=== PATIENT | male | born 1975 | race Two or more races ===

== ENCOUNTER 2019-09-18 09:49 | Emergency (ER) | payer SELFPAY ==
[~2019-09-18] VITALS: Ht 165.1 cm; Wt 90.9 kg
--- NOTE | 2019-09-18 11:27 | PHYS DOC ---
Past Medical History Past Medical History: No Pertinent History Past Surgical History: No Surgical History Smoking Status: Never Smoker Alcohol Use: None General Adult EDM: Chief Complaint: LOWER EXT PAIN HPI: HPI: Patient is a 44 year old male who presents with Croatian-speaking only and states that 8 days ago he was outside doing yard work and he had a trailer and he was trying to load a machine up on the trailer and he hit the back of his right knee against a trailer. He states that it is been very painful and he has been taking Tylenol for it and there was a increase in bruising. He states he is walking but it is hard and it is a constant pain that he states he is unable to describe. He states that he went to a clinic in [facility] 2 days ago that he does not remember the name of and they did an ultrasound on the leg. He states that they called him today and told him to come into the emergency room to have it further examine for possible clot. Patient rates his pain an 8 out of 10. He states his only history is cholesterol which he takes a medication for. Review of Systems: Review of Systems: Musculoskeletal: Denies back pain. Right knee joint pain. [] Heart Score: Risk Factors: Risk Factors: DM, Current or recent (<one month) smoker, HTN, HLP, family history of CAD, obesity. Risk Scores: Score 0 - 3: 2.5% MACE over next 6 weeks - Discharge Home Score 4 - 6: 20.3% MACE over next 6 weeks - Admit for Clinical Observation Score 7 - 10: 72.7% MACE over next 6 weeks - Early Invasive Strategies Allergies: Allergies: Allergies Coded Allergies Type Severity Reaction Last Updated Verified No Known Drug Allergies 09/18/19 No Physical Exam: PE: Constitutional: Well developed, well nourished, no acute distress, non-toxic appearance. [] HENT: Normocephalic, atraumatic, bilateral external ears normal, oropharynx moist, no oral exudates, nose normal. [] Eyes: PERRLA, EOMI, conjunctiva normal, no discharge. [] Neck: Normal range of motion, no tenderness, supple, no stridor. [] Cardiovascular:Heart rate regular rhythm, no murmur [] Lungs & Thorax: Bilateral breath sounds clear to auscultation [] Abdomen: Bowel sounds normal, soft, no tenderness, no masses, no pulsatile masses. [] Skin: Warm, dry, no erythema, no rash. Hematoma to the back of the right knee that is healing with a yellowing of the skin down the medial portion of the leg. [] Back: No tenderness, no CVA tenderness. [] Extremities: Back of right knee tenderness, no cyanosis, no clubbing, ROM intact, no edema. [] Neurologic: Alert and oriented X 3, normal motor function, normal sensory function, no focal deficits noted. [] Psychologic: Affect normal, judgement normal, mood normal. [] Current Patient Data: Vital Signs: Vital Signs Date Time Temp Pulse Resp B/P (MAP) Pulse Ox O2 Delivery O2 Flow Rate FiO2 09/18/19 10:43 98.8 64 18 154/84 (107) 98 Room Air 98.8 EKG: EKG: [] Radiology/Procedures: Radiology/Procedures: [] Impression: [address] [address] IMAGING REPORT Signed PATIENT: ZULEYMA FLYNN: [id number] : 1975 LOCATION: ER AGE: 44 SEX: M EXAM STATUS: REG ER ORD. PHYSICIAN: JONES GARCIA APRN REASON: injury to back of knee PROCEDURE: KNEE RIGHT 4V Examination: 4 views of the right knee HISTORY: History of injury to the back COMPARISON: None available FINDINGS: The alignment of the knee joint grossly appears unremarkable. There is no acute fracture or dislocation identified IMPRESSION: No acute osseous findings. Electronically signed by: Abner Ray MD (09/18/2019 12:24 PM) [id number] DICTATED and SIGNED BY: ABNER RAY MD DATE: 09/18/[address] [id number] IMAGING REPORT Signed PATIENT: ZULEYMA FLYNN: [id number] : 1975 LOCATION: ER AGE: 44 SEX: M EXAM STATUS: REG ER ORD. PHYSICIAN: JONES GARCIA APRN REASON: pain, swelling, bruising, hit back of right knee on trailor PROCEDURE: VENOUS LOWER EXTREMITY RIGHT INDICATION: Right leg pain and swelling COMPARISON: September 13, 2019 TECHNIQUE: Grayscale, color and doppler ultrasound images were obtained of the right lower extremity venous vasculature. RIGHT: No thrombus identified in the common femoral vein, femoral vein, popliteal vein or visualized calf veins. IMPRESSION: * No thrombus identified in deep venous system of right lower extremity. * 34 x 29 x 9 mm complex hypoechoic region in the popliteal fossa. Could be from complex fluid collection within the area including from complex Wynn's cyst or soft tissue hematoma. Electronically signed by: Danay Cuevas MD (09/18/2019 1:01 PM) [id number] DICTATED and SIGNED BY: DANAY CUEVAS MD DATE: 09/18/19 1301 Course & Med Decision Making: Course & Med Decision Making Pertinent Labs and Imaging studies reviewed. (See chart for details) The right leg is 1+ more swollen than the left. There is bruising that is healing to the back of his right knee and the right leg is a yellow color from where the hematoma had drained down into the extremity. Pedal pulse strong and present. Patient is full range of motion of the leg. Patient states he is unable to bend at the knee but in the room he is bending both legs equally up in bed and when he is showing me where the bruising was he is also bending the knee fully. Patient denies any shortness of breath or chest pain. He denies any numbness or tingling in the extremity. He denies any coolness in the extremity or color change such as purple or blue or pale. He wiggles all toes appropriately. He has full range of motion and strength in that extremity. [] Dragon Disclaimer: Dragon Disclaimer: This electronic medical record was generated, in whole or in part, using a voice recognition dictation system. Departure Departure Impression: Primary Impression: Hematoma Disposition: HOME, SELF-CARE Condition: STABLE Referrals: NO PCP (PCP) Patient Instructions: Hematoma, [id number] Additional Instructions: Follow up with primary care provider. Take medication as prescribed. Continue using ice. Scripts Hydrocodone/Apap 5-325 (NORCO 5-325 TABLET) 1 Each Tablet 1 TAB PO PRN Q6HRS PRN for PAIN, #10 TAB 0 Refills Prov: JONES GARCIA APRN 09/18/19 JONES GARCIA APRN September 18, 2019 11:27
[2019-09-18] MEDS ORDERED: HYDROcodone/APAP 5/325MG 1 TAB TABLET PO ONE (11:30)
[2019-09-18 11:49] LABS: BASO % 1 % (0-3); EOS # 0.1 x10^3/uL (0.0-0.7); EOS % 2 % (0-3); HEMATOCRIT 43.7 % (39.0-53.0); HEMOGLOBIN 14.9 g/dL (13.0-17.5); LYMPH # 2.9 x10^3/uL (1.0-4.8); LYMPH % 42 % (24-48); MEAN CORPUSCULAR HEMOGLOBIN 30 pg (25-35); MEAN CORPUSCULAR HGB CONC 34 g/dL (31-37); MEAN CORPUSCULAR VOLUME 89 fL (79-100); MONO # 0.7 x10^3/uL (0.0-1.1); MONO % 10 % (0-9); NEUT # 3.2 x10^3/uL (1.8-7.7); NEUT % 46 % (31-73); PLATELET COUNT 283 x10^3/uL (140-400); RED CELL DISTRIBUTION WIDTH 13.6 % (11.5-14.5); WHITE BLOOD COUNT 6.9 x10^3/uL (4.0-11.0)
[2019-09-18 11:56] LABS: CALCIUM 8.8 mg/dL (8.5-10.1); CREATININE 0.6 mg/dL (0.7-1.3); GFR 145.7; POTASSIUM 4.2 mmol/L (3.5-5.1)
[2019-09-18 12:02] LABS: ALBUMIN 4.1 g/dL (3.4-5.0); ALBUMIN/GLOBULIN RATIO 1.3 (1.0-1.7); TOTAL BILIRUBIN 0.6 mg/dL (0.2-1.0); TOTAL PROTEIN 7.3 g/dL (6.4-8.2)
[2019-09-18 12:05] LABS: PROTHROMBIN TIME PATIENT 12.4 SEC (11.7-14.0)
[2019-09-18 12:15] VITALS: BP 141/72
--- NOTE | 2019-09-18 12:27 | RAD ---
Examination: 4 views of the right knee HISTORY: History of injury to the back COMPARISON: None available FINDINGS: The alignment of the knee joint grossly appears unremarkable. There is no acute fracture or dislocation identified IMPRESSION: No acute osseous findings. Electronically signed by: Abner Ray MD (09/18/2019 12:24 PM) [id number]
--- NOTE | 2019-09-18 13:03 | RAD ---
INDICATION: Right leg pain and swelling COMPARISON: September 13, 2019 TECHNIQUE: Grayscale, color and doppler ultrasound images were obtained of the right lower extremity venous vasculature. RIGHT: No thrombus identified in the common femoral vein, femoral vein, popliteal vein or visualized calf veins. IMPRESSION: * No thrombus identified in deep venous system of right lower extremity. * 34 x 29 x 9 mm complex hypoechoic region in the popliteal fossa. Could be from complex fluid collection within the area including from complex Wynn's cyst or soft tissue hematoma. Electronically signed by: Jayce Fowler MD (09/18/2019 1:01 PM) [id number]
[2019-09-18] MEDS ORDERED: HYDR-3164 PO (13:11)
== END 2019-09-18 13:37 | disposition home or self-care (01) ==
LOC: ER 09:49
DX: S80.01XA Contusion of right knee, initial encounter (principal); W22.8XXA Striking against or struck by other objects, initial encounter; Y93.89 Activity, other specified; Y92.89 Other specified places as the place of occurrence of the external cause; Y99.8 Other external cause status
CPT/HCPCS: 36415; 73564; 80053; 85025; 85610; 93971; 99285